=== PATIENT | female | born 2000 | race Two or more races ===

== ENCOUNTER 2023-08-02 18:20 | Emergency (ER) | payer OTHER ==
[~2023-08-02] VITALS: Ht 162.6 cm; Wt 53.6 kg
[2023-08-02 18:37] VITALS: TEMP 97.7
[2023-08-02] MEDS: TraMADol HCL 50 MG TABLET PO ONE (20:02)
[2023-08-02] MEDS: KETOROLAC TROMETHAMINE 30 MG/ML VIAL IM ONE (20:11)
[2023-08-02] MEDS ORDERED: AMOX250C4 PO (20:23)
[2023-08-02 20:43] VITALS: BP 131/78; PULSE 95; RESP 18
== END 2023-08-02 21:01 | disposition home or self-care (01) ==
LOC: EMS 18:21
DX: K02.9 Dental caries, unspecified (principal)
CPT/HCPCS: 99283; J1885